=== PATIENT | female | born 1950 | race Caucasian/White ===

== ENCOUNTER 2021-11-22 05:35 | Emergency (ER) | payer MEDICARE | END 2021-11-22 05:49 | disposition left against medical advice (07) | LOC: FER 05:35 | DX: Z53.21 Procedure and treatment not carried out due to patient leaving prior to being seen by health care provider (principal) ==

== ENCOUNTER → 2022-04-24 | Day surgery (SDC) | payer MEDICARE ==
[~2022-04-24] VITALS: Ht 172.7 cm; Wt 71.9 kg
[~2022-04-24] MED LIST: ALLOPURINOL 10100 MG PO; DAILY VALUE1 EACH PO; DILTIAZEM 24HR240 M1 PO; HYDRALAZINE25 MG PO; IRBESARTAN150 MG PO; LASIX40 MG PO; METOPROLOL SUC200 MG PO; POTASSIUM CHLO10 ME2 PO; XARELTO20 MG PO
[2022-04-24 10:52] LABS: BUN/CREAT RATIO (CALC) 18.9 RATIO; CREATININE 0.74 mg/dL (0.51-0.95); POTASSIUM 3.6 mmol/L (3.5-5.1)
== END | disposition home or self-care (01) ==
LOC: FAS 09:28
PROVIDERS: Surgery
DX: C50.912 Malignant neoplasm of unspecified site of left female breast (principal); I10 Essential (primary) hypertension; E78.00 Pure hypercholesterolemia, unspecified; E11.9 Type 2 diabetes mellitus without complications; I25.10 Atherosclerotic heart disease of native coronary artery without angina pectoris; Z88.1 Allergy status to other antibiotic agents
CPT/HCPCS: 36415; 71045; 76000; 80048; C1788; J0690; J1644; J2250; J2405; J2704; J3010; J7120